=== PATIENT | female | born 1995 | race African-American/Black ===

== ENCOUNTER 2016-10-28 16:38 | Emergency (ER) | payer OTHER ==
[~2016-10-28] VITALS: Ht 177.8 cm; Wt 63.5 kg
[~2016-10-28 16:38] MED LIST: AUGMENTIN 875 M1 TAB PO
--- NOTE | 2016-10-28 18:03 | ED MVC/FALL/TRAUMA COMPLAINT ---
History of Present Illness General Chief Complaint: Fall Stated Complaint: FALL, +HEADSTRIKE, +LOC Source: patient Exam Limitations: no limitations Vital Signs & Intake/Output Vital Signs & Intake/Output Vital Signs Date Time Temp Pulse Resp B/P Pulse O2 O2 Flow FiO2 Ox Delivery Rate 10/28 2009 98.4 71 18 127/82 97 Room Air 10/29 2007 71 127/73 10/28 1703 98.7 70 18 120/82 97 Room Air Allergies Coded Allergies: MDX - Propranolol (PROPRANOLOL) (Intermediate, hives 05/14/12) Triage Note: PT STTAES THAT SHE WAS IN KITCHEN WHEN SHE STARTED TO FEEL LIGHT HEADED AND THEN SHE WOKE UP ON THE FLOOR. PT WAS ALONE AT HOME AND IS UNSURE OF HOW LONG SHE WAS OUT. COMPLAINS OF PAIN TO BACK OF HEAD. STATES THAT SHE JUST STARTED HER PERIOD SO SHE HAS NOT FELT WELL Triage Nurses Notes Reviewed? yes : No Patient currently breastfeeds: No HPI: This patient is a 21-year-old female who is brought into the emergency department today by her sister, mother, and boyfriend who presented to the emergency department today for evaluation of syncope. The patient reported that around 3:00 this afternoon she started to feel lightheaded. She reported that she typically feels lightheaded when she gets her period and she is currently on her menses. However, the patient reported that typically when she feels lightheaded, she is able to sit herself down and she does not pass out. She was standing in the kitchen when this happened. She started to feel nauseous, saw black spots in front of her eyes, and passed out. She texts that her sister approximately a half an hour later saying that she had woken up on the floor. They think that she was on the floor for approximately half an hour. The patient reported that she is having 7 out of 10 occipital head pain and neck pain. She has a headache currently. No visual changes area and the patient denied any back pain. She reported that she thinks that she fell onto her knees , so she is having knee pain. The patient denied any abdominal pain, chest pain , difficulty breathing, vomiting. (JOSELINE NESS,TAYE) Reconcile Medications AMOXICILLIN/POTASSIUM CLAV (Augmentin 875-125 Tablet) 875 MG/125 MG TAB 1 TAB PO BID SINUSITIS Ibuprofen 800 MG TABLET 1 TAB PO TID pain (RYAN RUANO) Past History Travel History Traveled to [place] past 21 day No Medical History Any Pertinent Medical History? see below for history Neurological: NONE EENT: NONE Cardiovascular: NONE Respiratory: asthma Gastrointestinal: NONE Hepatic: NONE Renal: NONE Musculoskeletal: NONE Psychiatric: NONE Endocrine: NONE Blood Disorders: NONE Cancer(s): NONE COURT WORKER/Reproductive: NONE Surgical History Surgical History: non-contributory Psychosocial History What is your primary language Palauan Tobacco Use: Never used ETOH Use: denies use Illicit Drug Use: denies illicit drug use Family History Hx Contributory? No (TAYE TREVIZO PA-C) Review of Systems Review of Systems Constitutional: Reports: no symptoms. Eyes: Reports: no symptoms. Ears, Nose, Throat, Mouth: Reports: no symptoms. Respiratory: Reports: no symptoms. Cardiovascular: Reports: no symptoms. Gastrointestinal/Abdominal: Reports: no symptoms. Genitourinary: Reports: no symptoms. Musculoskeletal: Reports: see HPI. Skin: Reports: no symptoms. Neurological/Psychological: Reports: no symptoms. All Other Systems: Reviewed and Negative (TAYE TREVIZO PA-C) Physical Exam Physical Exam General Appearance: well developed/nourished, no apparent distress, alert, awake Comments: Well-developed well-nourished person in no acute distress HEENT: Normal EENT exam, head normocephalic/atraumatic with no bony deformity/ step-offs of the skull, tenderness to palpation over the mid aspect of the occiput with no skin breakdown, erythema, or ecchymosis PERRLA bilaterally. EOMI bilaterally Nose is atraumatic. Neck: Supple. Midline tenderness. Range of motion limited due to pain Back: Normal inspection Cardiovascular: Regular rate and rhythm with no murmurs Respiratory: Chest nontender. No respiratory distress. Breath sounds clear to auscultation bilaterally Abdomen: Soft, nontender nondistended, no appreciable organomegaly. Normal bowel sounds. No ascites and nondistended with no rebound or guarding Extremity: Normal and equal pulses. No evidence of trauma. No bony or muscular deformities Neuro: Alert oriented x3, cranial nerves II through XII grossly intact. No aphasia. No facial droop. No unilateral weakness. No focal neurologic deficits Skin: No appreciable rash on exposed skin, skin is warm and dry. Psych: Mood and affect is normal, memory and judgment is normal. Core Measures ACS in differential dx? Yes Severe Sepsis Present: No Septic Shock Present: No (JOSELINE NESS,TAYE) Progress Differential Diagnosis: C/T/L spine injury, ext injury, ICH, pelvis injury, spinal cord injury, concussion Plan of Care: Orders Procedure Date/time Status Add-on Test (ER Only) 10/28 1805 Active MISTAKE 10/29 1751 Active HUMAN BETA HCG SCREEN 10/29 1751 Complete COMPREHENSIVE METABOLIC PANEL 10/29 1751 Complete CREATINE PHOSPHOKINASE 10/29 1751 Complete CBC WITHOUT DIFFERENTIAL 10/29 1751 Complete Laboratory Tests 10/28/161833: Anion Gap 10, Estimated GFR > 60, BUN/Creatinine Ratio 20.0, Glucose 83, Calcium 9.5, Total Bilirubin 0.4, AST 21, ALT 36, Alkaline Phosphatase 42, Creatine Kinase 109, Total Protein 7.7, Albumin 4.2, Globulin 3.5, Albumin/Globulin Ratio 1.2, Total Beta HCG NEGATIVE, CBC w Diff NO MAN DIFF REQ, RBC 5.01, MCV 82.1, MCH 27.4, RDW 13.9, MPV 8.3, Gran % 68.4, Lymphocytes % 23.5, Monocytes % 6.9, Eosinophils % 0.9, Basophils % 0.3, Absolute Granulocytes 5.2, Absolute Lymphocytes 1.8, Absolute Monocytes 0.5, Absolute Eosinophils 0.1, Absolute Basophils 0, PUBS MCHC 33.4 10/28/16 174: Urine Test Cancelled Diagnostic Imaging: Viewed by Me: Radiology Read. Discussed w/RAD: Radiology Read. Radiology Impression: PATIENT: WILLIAM CASTLE PRESENT AGE: 21 PATIENT ACCOUNT NO: [id number] : 94 LOCATION: [facility] ORDERING PHYSICIAN: TAYE TREVIZO PA-C SERVICE DATE: 10/28/16 EXAM TYPE: RAD - XRY-KNEE COMPLETE LEFT; XRY-KNEE COMPLETE RIGHT EXAMINATIONS: BILATERAL KNEES 3 VIEWS CLINICAL INFORMATION: Bilateral knee pain. COMPARISON: None. TECHNIQUE: AP, lateral, oblique views of each knee were obtained. FINDINGS : There are no fractures or dislocations. There is no knee joint effusion. There is no significant soft tissue swelling. IMPRESSION: Unremarkable bilateral knee radiographs. DICTATED BY: ALYSSA BEAVERS MD DATE/TIME DICTATED:10/28/161935 TRAVELING STOREKEEPER:ROXANA DATE/TIME TRANSCRIBED:10/28/161935 CONFIDENTIAL, DO NOT COPY WITHOUT APPROPRIATE AUTHORIZATION. <Electronically signed in Other Vendor System> SIGNED BY: ALYSSA BEAVERS MD 10/28/161938 Hand-Off Endorsed To: RYAN RUANO Endorsed Time: 1999 Pending: CT, Xray (JOSELINE NESS,TAYE) Radiology Impression: EXAM TYPE: CAT - CT CERV SPINE WO IV CONTRAST; CT HEAD WO IV CONTRAST EXAMINATIONS: CT HEAD WITHOUT CONTRAST AND CT CERVICAL SPINE WITHOUT CONTRAST CLINICAL INFORMATION: Syncope. Trauma. Pain. COMPARISON: None. TECHNIQUE: Contiguous helical images of the brain were obtained without IV contrast. Contiguous helical images of the cervical spine were obtained without IV contrast. Multiplanar reconstructions were performed. DLP: 863 mGy-cm. FINDINGS: There are no pathologic extra-axial fluid collections. The lateral, third, fourth ventricles are nondilated and concordant with the appearance of the sulci. There is no evidence for acute intraparenchymal hemorrhage or infarct. There is neither mass nor mass effect. There is no shift of midline structures. There is patchy paranasal sinus opacification. The paranasal sinuses and mastoid air cells are otherwise clear. There are no osseous lesions. The cervical vertebra are in normal alignment. Disc heights and vertebral heights are well-preserved. There are no fractures. There is no prevertebral soft tissue swelling. There is no cervical lymphadenopathy. The visualized lung apices are clear. IMPRESSION: No evidence for acute intracranial injury. Paranasal sinus disease. No evidence for acute injury to the cervical spine. (RYAN RUANO) Departure Departure Condition: Stable Clinical Impression Primary Impression: Syncope Qualifiers: Syncope type: vasovagal syncope Qualified Code: R55 - Syncope and collapse Referrals: UNKNOWN (PCP/Family) Departure Forms: Customer Survey General Discharge Information (TAYE TREVIZO PA-C) Departure Disposition: HOME OR SELF CARE Additional Instructions: Follow-up with your primary care doctor. Take ibuprofen 800 mg as prescribed. Please go over all results of today's visit with your primary care doctor. Contact your primary care doctor to let them know you were here in the emergency room. There may be nonspecific findings which may not be related to your visit today here in the emergency room but may require further evaluation and chronic monitoring by your primary care doctor. If you had a laceration today the chance of foreign body always remains. You should follow-up with your primary care doctor for recheck in 3-5 days for a wound check. If you had an x-ray done there is a chance that a fracture could have been missed on initial read and you should follow-up with your primary care doctor for repeat x-rays if symptoms persist. If your blood pressure was elevated here in the emergency room please have rechecked by her primary care doctor within the next 48 hours by your primary care doctor. If you were prescribed a narcotic here in the emergency room or any type of controlled substances you're not allowed to drive while taking this medication or operate any type of heavy machinery. Narcotics can make you feel lightheaded dizziness nausea and can cause constipation. You may need to tile picker a stool softener. Thank you for choosing [facility] emergency room. Please return to the emergency room immediately if you have any other concerns worsening of symptoms. Prescriptions: Current Visit Scripts Ibuprofen 1 TAB PO TID #30 TAB Comments Nontoxic-appearing. In no apparent distress. History of the same in the past. Seems consistent with vagal episode. Not orthostatic. Hemodynamically stable. (JACI VILLASENOR,RYAN)
[2016-10-28 18:50] LABS: ABSOLUTE BASOPHIL COUNT 0 /CUMM (0.0-0.2); ABSOLUTE EOSINOPHIL COUNT 0.1 /CUMM (0.0-0.7); ABSOLUTE GRANULOCYTE CT 5.2 /CUMM (1.4-6.5); ABSOLUTE LYMPH COUNT 1.8 /CUMM (1.2-3.4); ABSOLUTE MONOCYTE COUNT 0.5 /CUMM (0.10-0.60); BASOPHIL % 0.3 % (0.0-2.0); EOSINOPHIL % 0.9 % (0-5); GRANULOCYTE % 68.4 % (42.2-75.2); HEMATOCRIT 41.1 % (37-47); MEAN CORPUSCULAR HGB 27.4 PG (27.0-31.0); MEAN CORPUSCULAR HGB CONC 33.4 G/DL (33.0-37.0); MEAN CORPUSCULAR VOLUME 82.1 FL (81.0-99.0); MEAN PLATELET VOLUME 8.3 FL (7.4-10.4); PLATELET COUNT 200 /CUMM (130-400); RBC DISTRIBUTION WIDTH 13.9 % (11.5-14.5); RED BLOOD CELL CT 5.01 /CUMM (4.20-5.40); WHITE BLOOD CELL COUNT 7.6 /CUMM (4.8-10.8)
--- NOTE | 2016-10-28 19:39 | RADIOLOGY REPORT ---
EXAMINATIONS: BILATERAL KNEES 3 VIEWS CLINICAL INFORMATION: Bilateral knee pain. COMPARISON: None. TECHNIQUE: AP, lateral, oblique views of each knee were obtained. FINDINGS: There are no fractures or dislocations. There is no knee joint effusion. There is no significant soft tissue swelling. IMPRESSION: Unremarkable bilateral knee radiographs.
--- NOTE | 2016-10-28 19:57 | CT SCAN REPORT ---
EXAMINATIONS: CT HEAD WITHOUT CONTRAST AND CT CERVICAL SPINE WITHOUT CONTRAST CLINICAL INFORMATION: Syncope. Trauma. Pain. COMPARISON: None. TECHNIQUE: Contiguous helical images of the brain were obtained without IV contrast. Contiguous helical images of the cervical spine were obtained without IV contrast. Multiplanar reconstructions were performed. DLP: 863 mGy-cm. FINDINGS: There are no pathologic extra-axial fluid collections. The lateral, third, fourth ventricles are nondilated and concordant with the appearance of the sulci. There is no evidence for acute intraparenchymal hemorrhage or infarct. There is neither mass nor mass effect. There is no shift of midline structures. There is patchy paranasal sinus opacification. The paranasal sinuses and mastoid air cells are otherwise clear. There are no osseous lesions. The cervical vertebra are in normal alignment. Disc heights and vertebral heights are well-preserved. There are no fractures. There is no prevertebral soft tissue swelling. There is no cervical lymphadenopathy. The visualized lung apices are clear. IMPRESSION: No evidence for acute intracranial injury. Paranasal sinus disease. No evidence for acute injury to the cervical spine.
[2016-10-28 20:10] VITALS: BP 127/82
[2016-10-28] MEDS ORDERED: IBUPROFEN800 M1 PO (20:39)
== END 2016-10-28 20:53 ==
LOC: ERH 16:38
PROVIDERS: Physician Assistant
DX: R55 Syncope and collapse (principal); R51 Headache; M54.2 Cervicalgia; M25.561 Pain in right knee; M25.562 Pain in left knee
CPT/HCPCS: 73562-LT; 73562-RT; 81025